=== PATIENT | male | born 1960 | race Hispanic/Latino ===

== ENCOUNTER 2021-06-03 14:47 | Observation (INO) | payer BC ==
--- OUTSIDE RECORDS SUMMARY | 2021-06-03 14:50 | XMS REPORT | Continuity of Care Document ---
:1960 Author Organization [facility] t Address [address] [place] [address] Care Team Providers Name Role Phone Pcp, Does Not Have A Primary Care Physician Doctor Unassigned, Name Attending Clinician Unavailable Therapy, Covid Infusion Attending Clinician Unavailable Jose KC, H Attending Clinician Payers Payer Name Policy Type Policy Number Effective Date Expiration Date S ource Problems This patient has no known problems. Allergies, Adverse Reactions, Alerts Allergy Allergy Status Severity Reaction(s) Onset Inactive Treating Comm ents Source Name Type Date Date Clinician NO KNOWN Drug Active Univers ALLERGIE Class ity of S [facility] Social History Social Habit Start Date Stop Date Quantity Comments Source Sex Assigned At [birth year] [facility] 00:00:00 00:00:00 [facility] Branch Smoking Status Start Date Stop Date Source Unknown if ever smoked [facility] Medications Ordered Filled Start Stop Current Ordering Indication Dosage Frequency Signature Comments Components Source Medication Medication Date Date Medication? Clinician (SIG) Name Name casirivimab 2020- No [id number] 1200mg Univers -imdevimab 11-05 ity of (REGEN-COV 14:15: 13:04 [place] (EUA)) 00 :00 Medical injection Branch 1,200 mg casirivimab 2020- No [id number] 1200mg 1,200 mg, Univers -imdevimab 11-05 Subcutaneo it y of (REGEN-COV 14:15: 13:04 [place] ONCE, [place] 00 :00 1 dose, On Medical injection [place] Kristen 1,200 mg 11/05/20 at 0915, Routine Immunizations Ordered Filled Immunization Date Status Comments Sourc e Immunization Name Name SARS-COV-2 COVID-19 2020-06-10 Completed Unive rsity of PFIZER VACCINE 00:00:00 [facility] SARS-COV-2 COVID-19 2020-06-10 Completed Unive rsity of PFIZER VACCINE 00:00:00 [facility] SARS-COV-2 COVID-19 2020-06-10 Completed Unive rsity of PFIZER VACCINE 00:00:00 [facility] SARS-COV-2 COVID-19 2020-05-20 Completed Unive rsity of PFIZER VACCINE 00:00:00 [facility] SARS-COV-2 COVID-19 2020-05-20 Completed Unive rsity of PFIZER VACCINE 00:00:00 [facility] SARS-COV-2 COVID-19 2020-05-20 Completed Unive rsity of PFIZER VACCINE 00:00:00 [facility] Vital Signs Vital Name Observation Time Observation Value Comments Source Systolic blood 2020-11-05 13:20:00 137 mm[Hg] Univer sity of pressure [facility] Diastolic blood 2020-11-05 13:20:00 80 mm[Hg] Unive rsity of pressure [facility] Heart rate 2020-11-05 13:20:00 65 /min [facility] Body temperature 2020-11-05 13:20:00 36.56 Padmini [facility] in 2020-11-05 13:20:00 96 /min room air [facility] Arterial blood by [facility] Pulse oximetry [place] Body height 2020-11-05 12:55:00 170.2 cm [facility] Body weight 2020-11-05 12:55:00 83.915 kg [facility] BMI 2020-11-05 12:55:00 28.98 kg/m2 [facility] Procedures Procedure Date / Time Performed Performing Clinician Sourc e EXTERNAL PROVIDER 2020-12-01 05:01:00 Doctor Unassigned, No [facility] [place] REC[facility]DS Name [facility] CONSENT/REFUSAL FOR 2020-11-05 05:01:00 [facility] AND Name Medical Branch TREATMENT Encounters Start End Encounter Admission Attending Care Care Encounter Source Date/Time Date/Time Type Type Clinicians Facility Department ID 2020-12-01 2020-12-01 Orders Doctor CAMARA [id number] Univers 00:00:00 00:00:00 Only Unassigned, STEPHANY [id number] [facility] of [facility] [id number] [place] as [id number] [facility] 009 Branch 2020-11-05 2020-11-05 Nurse Therapy, Pcp Covid Infusion [facility] [id number] Univers 07:43:48 08:43:48 Visit Je Garcia PRIMARY [id number] [id number] [id number] [place] dical 042 Branch 2020-11-05 2020-11-05 Outpatient R [facility] [id number] Univers 08:00:00 08:00:00 ity of [facility] 2020-11-05 2020-11-05 Orders Doctor CAMARA [id number] Univers 00:00:00 00:00:00 Only Unassigned, STEPHANY [id number] [facility]y of [facility] [id number] [place] as [phone] [address] Results This patient has no known results.
[2021-06-03] MEDS ORDERED: MORPHINE 2 MG/ML SYR ONE (15:22)
[2021-06-03] MEDS ORDERED: METOPROLOL TAR 25 MG TAB ONE (15:23)
[2021-06-03] MEDS ORDERED: ASPIRIN 81 MG CHEWABLE TABLET ONE (15:35)
[2021-06-03 15:38] LABS: Absolute Lymphocytes (CBC) 1.6 K/uL (0.7-4.9); Hematocrit 43.6 % (39.6-49.0); Lymphocytes % 22.7 % (15.3-44.8); RBC Red Blood Cell Count 4.98 M/uL (4.33-5.43)
[2021-06-03 15:51] LABS: BUN Blood Urea Nitrogen 21 mg/dL (7-18); Bicarbonate 27 mmol/L (21-32); Glucose Level 186 mg/dL (74-106); Potassium 3.8 mmol/L (3.5-5.1); Sodium Level 138 mmol/L (136-145); Troponin High Sensitivity 8.1 pg/mL (<58.9)
--- NOTE | 2021-06-03 15:51 | RAD REPORT ---
EXAM DESCRIPTION: RAD - Chest Single View - 06/03/2021 3:39 pm CLINICAL HISTORY: CHEST PAIN COMPARISON: Two view chest 08/02/2008 TECHNIQUE: AP portable chest image was obtained 06/03/2021 3:39 pm . FINDINGS: Lung volumes are very low accentuating lung parenchymal pattern. No peripheral mass or con solidations seen. Significant infiltrate, failure or volume overload are not suspected. Heart and vasculature are normal. No measurable pleural effusion and no pneumothorax. No acute bony abnormality seen. No acute aortic findings suspected. IMPRESSION: Limited portable study without acute cardiopulmonary finding.
[2021-06-03] MEDS ORDERED: NA CHLORIDE 0.9% 500 ML ONE (16:59)
[2021-06-03] MEDS ORDERED: MORPHINE 4 MG/ML SYR ONE (16:59)
[2021-06-03 17:16] LABS: AST/SGOT 15 U/L (15-37); Albumin 3.8 g/dL (3.4-5.0); Alkaline Phosphatase 101 U/L (45-117); Bilirubin Total 0.4 mg/dL (0.2-1.0); Magnesium 1.8 mg/dL (1.8-2.4); NT PRO-BNP 93 pg/mL (<125)
--- NOTE | 2021-06-03 17:17 | ER ---
Nurse's Notes [facility] Name: Poli Boston Age: 60 yrs Sex: Male : 1960 Arrival Date: 06/03/2021 Time: 14:48 Bed 19 Private MD: Domi Cevallos H Diagnosis: Chest pain, unspecified;Hypertensive heart disease without heart failure Presentation: 06/03 15:05 Chief complaint: Patient states: Chest pain/pressure that started this morning with ww nausea. Coronavirus screen: Vaccine status: Client denies travel out of the [place] in the last 14 days. Ebola Screen: Patient denies travel to an Ebola-affected area in the 21 days before illness onset. Initial Sepsis Screen: Does the patient meet any 2 criteria? No. Patient's initial sepsis screen is negative. Does the patient have a suspected source of infection? No. Patient's initial sepsis screen is negative. Risk Assessment: Do you want to hurt yourself or someone else? Patient reports no desire to harm self or others. Onset of symptoms was June 03, 2021. 15:05 Method Of Arrival: Ambulatory ww 15:05 Acuity: ZEYNEP 3 ww Triage Assessment: 15:06 General: Appears in no apparent distress. Behavior is cooperative. Pain: Complains of ww pain in xiphoid area, mid-sternal area and left breast. Neuro: Level of Consciousness is awake, alert, obeys commands, Oriented to person, place, time, situation, Moves all extremities. Speech is normal. Cardiovascular: Capillary refill Patient's skin is warm and dry. Chest pain is located in chest wall substernal area. Respiratory: Airway is patent Respiratory effort is even, unlabored, Respiratory pattern is regular, symmetrical. GI: Reports. Derm: Skin is intact, is healthy with good turgor. Historical: - Home Meds: 15:06 Metformin Oral [Active]; Glimepiride Oral [Active]; ww - PMHx: 15:06 Diabetes - NIDDM; ww - Immunization history:: Adult Immunizations up to date. - Social history:: Smoking status: Patient denies any tobacco usage or history of. Screenin:08 Abuse screen: Denies threats or abuse. Denies injuries from another. Nutritional ww screening: No deficits noted. Tuberculosis screening: No symptoms or risk factors identified. Fall Risk None identified. Assessment: 15:34 Reassessment: No changes from previously documented assessment. Patient and/or family ll1 updated on plan of care and expected duration. Pain level reassessed. Patient is alert, oriented x 3, equal unlabored respirations, skin warm/dry/pink. Pain: Complains of pain in chest Pain does not radiate. Pain began 1 day ago. 16:30 Reassessment: No changes from previously documented assessment. Patient and/or family ll1 updated on plan of care and expected duration. Pain level reassessed. Patient is alert, oriented x 3, equal unlabored respirations, skin warm/dry/pink. 17:29 Reassessment: No changes from previously documented assessment. Patient and/or family ll1 updated on plan of care and expected duration. Pain level reassessed. Patient is alert, oriented x 3, equal unlabored respirations, skin warm/dry/pink. 18:30 Reassessment: No changes from previously documented assessment. Patient and/or family ll1 updated on plan of care and expected duration. Pain level reassessed. Patient is alert, oriented x 3, equal unlabored respirations, skin warm/dry/pink. 19:19 General: Appears in no apparent distress. Behavior is calm, cooperative. Neuro: Level kd3 of Consciousness is awake, alert, obeys commands, Oriented to person, place, time, situation. Cardiovascular: Patient's skin is warm and dry. Respiratory: Airway is patent Trachea midline Respiratory effort is even, unlabored, Respiratory pattern is regular, symmetrical. 20:33 Reassessment: pt leaving ama. admitting physician aware. kd3 Vital Signs: 15:05 BP 162 / 100; Pulse 87; Resp 18; Temp 98.9; Pulse Ox 97% ; Weight 81.65 kg; Height 5 ww ft. 7 in. (170.18 cm); Pain 8/10; 15:35 BP 181 / 96; Pulse 88; Resp 17; Pulse Ox 97% on R/A; ll1 16:52 BP 195 / 90; Pulse 63; Resp 16; Pulse Ox 97% on R/A; ll1 17:29 BP 166 / 88; Pulse 61; Resp 16; Pulse Ox 97% ; ll1 18:32 BP 168 / 87; Pulse 68; Resp 16; Pulse Ox 96% on R/A; ll1 19:20 BP 159 / 95; Pulse 70; Resp 16; Pulse Ox 95% on R/A; kd3 20:34 BP 163 / 81; Pulse 62; Resp 16; Pulse Ox 95% on R/A; kd3 15:05 Body Mass Index 28.19 (81.65 kg, 170.18 cm) ww ED Course: 14:48 Patient arrived in ED. ds1 14:48 Domi Cevallos DO is Private Physician. ds1 15:03 Alexy Montgomery PA is PHCP. cp 15:03 Crystal Persaud MD is Attending Physician. cp 15:06 Triage completed. ww 15:06 Arm band placed on. ww 15:08 Laurie Holder RN is Primary Nurse. ll1 15:08 Arm band placed on Patient placed in an exam room, on a stretcher. ll1 15:08 EKG done, by ED staff, reviewed by Crystal Persaud MD. ww 15:30 Inserted saline lock: 22 gauge in right antecubital area, using aseptic technique. ll1 Blood collected. 15:35 Patient has correct armband on for positive identification. Bed in low position. Call ll1 light in reach. Side rails up X 1. asbestos abatement worker on. Pulse ox on. NIBP on. 15:35 No provider procedures requiring assistance completed. Patient maintains SpO2 ll1 saturation greater than 95% on room air. 15:41 XRAY Chest (1 view) In Process Unspecified. EDMS 17:15 Crystal Miranda MD is Hospitalizing Provider. cp 19:30 Primary Nurse role handed off by Laurie Holder, JUANA mw2 20:22 Elizabeth Fonseca RN is Primary Nurse. kd3 Administered Medications: 15:16 Drug: Aspirin Chewable Tablet 324 mg Route: PO; ll1 18:35 Follow up: Response: No adverse reaction ll1 15:32 Not Given (Patient Refused): morphine 2 mg IVP once; (PAIN>8) RASS on ADMN: Combtv4, ll1 Very Agttd3, Agttd2, Rstlss1, AlertClm0, Drwsy-1, LtSdtn-2, ModSdtn-3, DpSdtn-4, UnArsble-5 x2 15:32 Drug: Metoprolol 25 mg Route: PO; ll1 18:35 Follow up: Response: No adverse reaction ll1 17:01 Drug: morphine 4 mg {Note: rass 0, pain 4/10.} Route: IVP; Site: right antecubital; ll1 18:34 Follow up: Response: No adverse reaction; Pain is decreased; RASS: Alert and Calm (0) ll1 17:01 Drug: NS 0.9% 500 ml Route: IV; Rate: bolus; Site: right antecubital; ll1 18:34 Follow up: Response: No adverse reaction; IV Status: Completed infusion; IV Intake: ll1 500ml 20:38 Not Given (Patient Refused): hydrALAZINE 10 mg IVP once kd3 20:39 Drug: NS 0.9% 500 ml Route: IV; Rate: 125 ml/hr; Site: right forearm; kd3 Intake: 18:34 IV: 500ml; Total: 500ml. 1 Outcome: 17:16 Decision to Hospitalize by Provider. cp 20:39 AMA AMA form signed kd3 20:39 Condition: stable 20:39 Discharge instructions given to patient, Instructed on the need for admit. 20:54 Patient left the ED. vc1 Signatures: Dispatcher [employer] EDMS Tammy Asencio ds1 Alexy Montgomery PA PA cp Tracy Jerome mw2 Laurie Holder RN RN ll1 Elizabeth Fonseca RN RN kd3 Prachi Braswell RN RN ww Nano Taylor RN RN vc1 Corrections: (The following items were deleted from the chart) 15:35 15:34 Pain: Complains of pain in chest Pain does not radiate. Pain began 2-3 days ago. ll1 ll1
--- NOTE | 2021-06-03 17:17 | EDPHYS ---
Physician Documentation [facility] Name: Poli Boston Age: 60 yrs Sex: Male : 1960 Arrival Date: 06/03/2021 Time: 14:48 Bed 19 Private MD: Domi Cevallos H ED Physician Crystal Persaud HPI: 06/03 15:15 This 60 yrs old Male presents to ER via Ambulatory with complaints of Chest cp Pain. 15:15 The patient or guardian reports chest pain that is located primarily in the anterior cp chest wall, bilaterally. 15:15 Onset: this morning, about 0700. The pain does not radiate. Associated signs and cp symptoms: Pertinent positives: shortness of breath, Pertinent negatives: abdominal pain, diaphoresis, vomiting. The chest pain is described as described as "smashing". Duration: The patient or guardian reports a single episode, that is still ongoing, but improving. Historical: - Home Meds: 15:06 Metformin Oral [Active]; Glimepiride Oral [Active]; ww - PMHx: 15:06 Diabetes - NIDDM; ww - Immunization history:: Adult Immunizations up to date. - Social history:: Smoking status: Patient denies any tobacco usage or history of. ROS: 15:20 Cardiovascular: Positive for chest pain, Negative for edema, palpitations. cp 15:20 Constitutional: Negative for body aches, chills, fever, poor PO intake. cp 15:20 Respiratory: Negative for cough, shortness of breath, wheezing. cp 15:20 Abdomen/GI: Negative for abdominal pain, nausea, vomiting, and diarrhea. 15:20 Eyes: Negative for injury, pain, redness, and discharge. cp Exam: 15:05 ECG was reviewed by the Attending Physician. cp 15:25 Constitutional: The patient appears in no acute distress, alert, awake, cp non-diaphoretic, non-toxic, well developed, well nourished, uncomfortable. Vital Signs: 15:05 BP 162 / 100; Pulse 87; Resp 18; Temp 98.9; Pulse Ox 97% ; Weight 81.65 kg; Height 5 ww ft. 7 in. (170.18 cm); Pain 8/10; 15:35 BP 181 / 96; Pulse 88; Resp 17; Pulse Ox 97% on R/A; ll1 16:52 BP 195 / 90; Pulse 63; Resp 16; Pulse Ox 97% on R/A; ll1 17:29 BP 166 / 88; Pulse 61; Resp 16; Pulse Ox 97% ; ll1 18:32 BP 168 / 87; Pulse 68; Resp 16; Pulse Ox 96% on R/A; ll1 19:20 BP 159 / 95; Pulse 70; Resp 16; Pulse Ox 95% on R/A; kd3 20:34 BP 163 / 81; Pulse 62; Resp 16; Pulse Ox 95% on R/A; kd3 15:05 Body Mass Index 28.19 (81.65 kg, 170.18 cm) ww MDM: 15:12 Patient medically screened. cp 16:37 HEART Score: History: ECG: Non specific repolarization disturbance / LBTB / PM (1), cp Age: > 45 and < 65 years (1), Risk Factors: > or = 3 Risk factors for atherosclerotic disease (2), [Hypertension] [DM] [+ Family HX]. The patient was given aspirin in the Emergency Department. 16:52 Data reviewed: vital signs, nurses notes, lab test result(s), EKG, radiologic studies, cp plain films. Counseling: I had a detailed discussion with the patient and/or guardian regarding: the historical points, exam findings, and any diagnostic results supporting the discharge/admit diagnosis, the presence of at least one elevated blood pressure reading (>120/80) during this emergency department visit, lab results, radiology results, the need for further work-up and treatment in the hospital. Physician consultation: Crystal Miranda MD was called at 16:52. 06/03 15:11 Order name: Basic Metabolic Panel; Complete Time: 16:37 ll1 06/03 16:37 Interpretation: Normal except: GLUC 186; BUN 21. cp 06/03 15:11 Order name: CBC with Diff; Complete Time: 16:37 ll1 06/03 15:11 Order name: Troponin HS; Complete Time: 16:37 ll1 06/03 15:14 Order name: PT-INR cp 06/03 15:14 Order name: Ptt, Activated cp 06/03 15:14 Order name: BNP cp 06/03 15:14 Order name: LFT's cp 06/03 15:14 Order name: Magnesium cp 06/03 17:34 Order name: COVID-19 SARS RT PCR (Document "Date of Onset" if Symptomatic) ss 06/03 17:41 Order name: Basic Metabolic Panel [facility] 06/03 17:41 Order name: Basic Metabolic Panel [facility] 06/03 17:41 Order name: CBC with Automated Diff [facility] 06/03 17:41 Order name: CBC with Automated Diff [facility] 06/03 17:41 Order name: Lipid Profile [facility] 06/03 15:11 Order name: XRAY Chest (1 view); Complete Time: 16:37 [facility] 06/03 15:11 Order name: EKG; Complete Time: 15:12 [facility] 06/03 15:11 Order name: Cardiac monitoring; Complete Time: 15:11 [facility] 06/03 15:11 Order name: EKG - Nurse/Tech; Complete Time: 15:11 [facility] 06/03 15:11 Order name: IV Saline Lock; Complete Time: 15:11 [facility] 06/03 17:41 Order name: CONS Physician Consult [facility] 06/03 17:41 Order name: Heart Healthy [facility] 06/03 17:41 Order name: Echo with Doppler [facility] 06/03 17:41 Order name: Lipid Profile [facility] 06/03 15:11 Order name: Labs collected and sent; Complete Time: 15:11 [facility] 06/03 15:11 Order name: O2 Per Protocol; Complete Time: 15:11 [facility] 06/03 15:11 Order name: O2 Sat Monitoring; Complete Time: 15:11 ll1 EC:05 Rate is 83 beats/min. Rhythm is regular. DE interval is normal. QRS interval is normal. cp QT interval is normal. T waves are Inverted in lead III. Interpreted by me. Reviewed by me. Administered Medications: 15:16 Drug: Aspirin Chewable Tablet 324 mg Route: PO; ll1 18:35 Follow up: Response: No adverse reaction ll1 15:32 Not Given (Patient Refused): morphine 2 mg IVP once; (PAIN>8) RASS on ADMN: Combtv4, ll1 Very Agttd3, Agttd2, Rstlss1, AlertClm0, Drwsy-1, LtSdtn-2, ModSdtn-3, DpSdtn-4, UnArsble-5 x2 15:32 Drug: Metoprolol 25 mg Route: PO; ll1 18:35 Follow up: Response: No adverse reaction ll1 17:01 Drug: morphine 4 mg {Note: rass 0, pain 4/10.} Route: IVP; Site: right antecubital; ll1 18:34 Follow up: Response: No adverse reaction; Pain is decreased; RASS: Alert and Calm (0) ll1 17:01 Drug: NS 0.9% 500 ml Route: IV; Rate: bolus; Site: right antecubital; ll1 18:34 Follow up: Response: No adverse reaction; IV Status: Completed infusion; IV Intake: ll1 500ml 20:38 Not Given (Patient Refused): hydrALAZINE 10 mg IVP once kd3 20:39 Drug: NS 0.9% 500 ml Route: IV; Rate: 125 ml/hr; Site: right forearm; kd3 Disposition Summary: 06/03/21 17:16 Hospitalization Ordered Hospitalization Status: Observation cp Provider: Crystal Miranda cp Location: Telemetry/MedSurg (observation) cp Condition: Stable cp Problem: new cp Symptoms: have improved cp Bed/Room Type: Standard cp Room Assignment: 216(06/03/21 19:24) vc1 Diagnosis - Chest pain, unspecified cp - Hypertensive heart disease without heart failure cp Forms: - Medication Reconciliation Form cp - SBAR form cp Signatures: Dispatcher [employer] EDAlexy Roberson PA PA cp Laurie Holder RN RN ll1 Elizabeth Fonseca RN RN kd3 Prachi Braswell RN RN ww Nano Taylor RN RN vc1 Corrections: (The following items were deleted from the chart) 17:16 cp vc1
[2021-06-03 17:19] LABS: ALT/SGPT < 10 U/L (12-78); Bilirubin Direct < 0.1 mg/dL (0-0.2)
[2021-06-03] MEDS ORDERED: ACETAMINOPHEN 500 MG TAB PO PRN (17:37)
--- NOTE | 2021-06-03 20:54 | P.SSS ---
Patient History Date of Service: 06/03/21 Reason for admission: Chest Pain History of Present Illness: Patient is a 60-year-old male with past medical history of ljg-vzkwumg-vgwqimlsl type II diabetes who presented to the ED with complaints of chest pain. He states the onset was about 7:00 this morning and the pain does not radiate. Associated with shortness of breath but denies abdominal pain, diaphoresis, vomiting. The chest pain is described as smashing and describes it as a single episode that is ongoing but has improved EKG showed inverted T waves in lead III. Troponin WNL. he was given 324 mg of chewable aspirin, 25 mg metoprolol. ED provider wishes to admit for observation. Allergies No Known Allergies Allergy (Unverified 05/26/16 15:52) Home medications list reviewed: Yes - Past Medical/Surgical History Diabetic: Yes Past Surgical History: Patient denies surgical history - Family History Father -: Heart disease - Social History Alcohol use: No CD- Drugs: Yes Caffeine use: No Place of Residence: Home Review of Systems Respiratory: Shortness of Breath Cardiovascular: Chest Pain Physical Examination - Physical Exam General: Alert, In no apparent distress, Oriented x3 HEENT: Atraumatic, PERRLA, Mucous membr. moist/pink, EOMI, Sclerae nonicteric Neck: Supple, 2+ carotid pulse no bruit, No LAD, Without JVD or thyroid abnormality Respiratory: Clear to auscultation bilaterally, Normal air movement Cardiovascular: No edema, Regular rate/rhythm, Normal S1 S2 Gastrointestinal: Normal bowel sounds, No tenderness Musculoskeletal: No tenderness Integumentary: No rashes Neurological: Normal speech, Normal strength at 5/5 x4 extr, Normal tone, Normal affect - Studies Laboratory Data (last 24 hrs) 06/03/21 15:26: Magnesium 1.8, Total Bilirubin 0.4, AST 15, ALT < 10 L, Alkaline Phosphatase 101 06/03/21 15:18: WBC 7.1, Hgb 15.4, Hct 43.6, Plt Count 184 06/03/21 15:18: Sodium 138, Potassium 3.8, BUN 21 H, Creatinine 0.66, Glucose 186 H 06/03/21 15:14: PT Cancelled, INR Cancelled, APTT Cancelled - Diagnosis (Problem(s)) (1) Chest pain Status: Acute Qualifiers: Chest pain type: unspecified Qualified Code(s): R07.9 - Chest pain, unspecified (2) Type 2 diabetes mellitus Status: Acute Qualifiers: Diabetes mellitus alf insulin use: without alf use Diabetes mellitus complication status: without complication Qualified Code(s): E11.9 - Type 2 diabetes mellitus without complications Treatment Summary: Patient received 324 mg of chewable aspirin and 25 mg metoprolol in the ED. his chest pain improved. I later received a call that patient was wanting to leave AMA. I spoke with patient and he states he is too anxious to stay in the hospital. Attempts were made to convince patient to stay, however his mind was made up. Told patient to please follow-up with cardiology outpatient and return to the ED with any new or worsening symptoms. - Disposition Disposition: AMA-LEFT AGAINST MEDICAL ADVIC Condition: FAIR Patient Discharge Instructions: Please follow-up with wildland fire fighter. Diet: AHA Activity: Ad leda Physician Review: Patient Assessed, Agree with Above Assessment and Plan Critical Care: No Time Spent Managing Pts Care (In Minutes): 50
[2021-06-03 21:00] VITALS: TEMP 98.9
[2021-06-03] MEDS ORDERED: METOPROLOL TAR 50 MG TAB PO SCH (21:00)
[2021-06-03 21:07] VITALS: O2SAT 95
[2021-06-03 21:08] VITALS: BP 163/81
[2021-06-04] MEDS ORDERED: ENOXAPARIN 40 MG/0.4 ML SQ SCH (09:00)
[2021-06-04] MEDS ORDERED: ASPIRIN EC 81 MG TAB PO SCH (09:00)
== END 2021-06-03 20:30 | disposition left against medical advice (07) ==
LOC: ER 14:47 → ERHOLD 17:37
PROVIDERS: ADMIT Hospitalist; ATTEND Hospitalist
DX: R07.9 Chest pain, unspecified (principal); E11.9 Type 2 diabetes mellitus without complications; Z53.29 Procedure and treatment not carried out because of patient's decision for other reasons; R06.02 Shortness of breath; Z20.822 Contact with and (suspected) exposure to COVID-19; Z82.49 Family history of ischemic heart disease and other diseases of the circulatory system
CPT/HCPCS: 96361; 93005; 85025; 80048; 36415; 83735; 80076; 84484; 83880; 71045; 96374; 99285; U0003; J2270; J7040; G0378 ×2

== ENCOUNTER → 2023-02-03 | Emergency (ER) | payer BC ==
[~2023-02-03] MED LIST: CYCLOBENZAPRINE 10 MG TAB ONE; KETOROLAC 30 MG/ML INJ ONE; MORPHINE 4 MG/ML SYR ONE; PROMETHAZINE 25 MG TABLET ONE
--- OUTSIDE RECORDS SUMMARY | 2023-02-03 00:28 | XMS REPORT | Continuity of Care Document ---
Author Name Unknown Address [address] [place] [address] [facility] thconnect Address [address] [place] [address] Care Team Providers Care Corporate Safety Manager Name Role Phone Pcp, Patient Does Not Have A Primary Care Physic melonie Doctor Unassigned, [place] Attending Clinician U navailable Therapy, Pcp Covid Infusion Attending Clinician Unavailable Je Garcia MD Attending Clinician Svitlana Bailey Unavailable Payers Payer Name Policy Type Policy Number Effective Date Expirati on Date Source Problems Condition Name Condition Details Condition Category Status Onset Date Resolution Date Last Treatment Date Treating Clinician Comments Source PRESBYOPIA Condition Active 08-15 00:00: 00 2021-08-15 07:58:03 Svitlana Bailey [facility] HYPEROPIA Condition Active 08-15 00:00: 00 2021-08-15 07:58:03 Svitlana Bailey [facility] Allergies, Adverse Reactions, Alerts Allergy Name Allergy Type Status Severity Reaction(s) Onset Date Inactive Date Treating Clinician Comments Source NO KNOWN ALLERGIE S Drug Class Active [facility] Social History Social Habit Start Date Stop Date Quantity Comments Source Sex Assigned At 1960 00:00:00 1960 00:00:00 [facility] Smoking Status Start Date Stop Date Source Unknown if ever smoked [facility] Medications Ordered Medication Name Filled Medication Name Start Date Stop Date Current Medication? Ordering Clinician Indication Dosage Frequency Signature (SIG) Comments Components Source casirivimab -imdevimab (REGEN-COV (EUA)) injection 1,200 mg 11-05 14:15: 00 11-05 13:04 :00 No [id number] [facility] casirivimab -imdevimab (REGEN-COV (EUA)) injection 1,200 mg 11-05 14:15: 00 11-05 13:04 :00 No [id number] 1200mg 1,200 mg, Subcutaneo us, ONCE, 1 dose, On 11/05/20 at 0915, Routine [facility] Vital Signs Vital Name Observation Time Observation Value Comments S ource Systolic blood pressure 2020-11-05 13:20:00 137 mm[Hg] [facility] Diastolic blood pressure 2020-11-05 13:20:00 80 mm[Hg] [facility] Heart rate 2020-11-05 13:20:00 65 /min [facility] Body temperature 2020-11-05 13:20:00 36.56 Padmini [facility] Oxygen saturation in Arterial blood by Pulse oximetry 2020-11-05 13:20:00 96 /min room air [facility] Body height 2020-11-05 12:55:00 170.2 cm [facility] Body weight 2020-11-05 12:55:00 83.915 kg [facility] BMI 2020-11-05 12:55:00 28.98 kg/m2 [facility] Procedures Procedure Date / Time Performed Performing Clinician Source Tint, photochromatic, per lens 2021-08-15 07:53:24 [facility], per lens 2021-08-15 07:53:24 Svitlana Bailey [facility] Antireflective coating, per lens 2021-08-15 07:52:18 Svitlana Bailey [facility] EXTERNAL PROVIDER RECORDS 2020-12-01 05:01:00 Do ctor Unassigned, [place] [facility] CONSENT/REFUSAL FOR DIAGNOSIS AND TREATMENT 2020-11-05 05:01:00 Doctor Unassigned, [place] [facility] Encounters Start Date/Time End Date/Time Encounter Type Admission Type Attending Clinicians Care Facility Care Department Encounter ID Source 2020-12-01 00:00:00 2020-12-01 00:00:00 Orders Only Doctor Unassigned, Black [place] [facility] [id number] [facility] 2020-11-05 07:43:48 2020-11-05 08:43:48 Nurse Visit Therapy, Pcp Je Ventura [facility] [id number] [facility] 2020-11-05 08:00:00 2020-11-05 08:00:00 Outpatient R [facility] [id number] [facility] 2020-11-05 00:00:00 2020-11-05 00:00:00 Orders Only Doctor Unassigned, [place] [facility] [id number] [facility]
--- NOTE | 2023-02-03 02:01 | ER ---
Nurse's Notes [facility] Name: Poli Boston Age: 62 yrs Sex: Male : 1960 Arrival Date: 02/03/2023 Time: 00:26 Bed 4 Private MD: Diagnosis: Lumbago with sciatica, left side Presentation: 02/03 00:57 Chief complaint: Patient states: left sided sciatic nerve pain. Coronavirus screen: At as6 this time, the client does not indicate any symptoms associated with coronavirus-19. Ebola Screen: No symptoms or risks identified at this time. Initial Sepsis Screen: Does the patient meet any 2 criteria? No. Patient's initial sepsis screen is negative. Does the patient have a suspected source of infection? No. Patient's initial sepsis screen is negative. Risk Assessment: Do you want to hurt yourself or someone else? Patient reports no desire to harm self or others. Onset of symptoms was January 20, 2023. 00:57 Acuity: ZEYNEP 4 as6 00:57 Method Of Arrival: Ambulatory as6 Historical: - Allergies: 00:56 No Known Allergies; as6 - Home Meds: 00:56 None [Active]; as6 - PMHx: 00:56 Diabetes - NIDDM; as6 - PSHx: 00:56 Appendectomy; Cholecystectomy; as6 - Immunization history:: Adult Immunizations not up to date. - Social history:: Smoking status: Patient denies any tobacco usage or history of. - Family history:: not pertinent. Screenin:11 [place] [facility] Fall Risk Assessment (Adult) History of falling in the last 3 months, jj7 including since admission No falls in past 3 months (0 pts) Confusion or Disorientation No (0 pts) Intoxicated or Sedated No (0 pts) Impaired Gait No (0 pts) Mobility Assist Device Used No (0 pt) Altered Elimination No (0 pt) Score/Fall Risk Level 0 - 2 = Low Risk Oriented to surroundings, Maintained a safe environment, Educated pt \T\ family on fall prevention, incl call for assistance when getting out of bed. Abuse screen: Denies threats or abuse. Nutritional screening: No deficits noted. Tuberculosis screening: No symptoms or risk factors identified. Assessment: 01:11 General: Appears in no apparent distress. uncomfortable, Behavior is calm, cooperative, jj7 appropriate for age. Pain: Complains of pain in left leg. Vital Signs: 00:57 BP 155 / 87; Pulse 100; Resp 18 S; Temp 98.8(TE); Pulse Ox 99% on R/A; Weight 74.84 kg as6 (R); Height 5 ft. 7 in. (R); Pain 10/10; 01:55 BP 148 / 77; Pulse 64; Resp 17; Pulse Ox 100% ; Pain 0/10; jj7 02:30 BP 138 / 74; Pulse 98; Resp 17; Pulse Ox 97% ; Pain 0/10; jj7 00:57 Body Mass Index 25.84 (74.84 kg, 170.18 cm) as6 00:57 Pain Scale: Adult as6 01:55 Pain Scale: Adult jj7 02:30 Pain Scale: Adult jj7 ED Course: 00:29 Patient arrived in ED. jj6 00:30 Oli Roca MD is Attending Physician. sp4 00:57 Arm band placed on. as6 00:59 Triage completed. as6 01:12 Patient has correct armband on for positive identification. Bed in low position. Call jj7 light in reach. 02:30 No provider procedures requiring assistance completed. Patient did not have IV access jj7 during this emergency room visit. Administered Medications: 01:10 Drug: Ketorolac IM 60 mg IM once Route: IM; Site: left gluteus; jj7 01:54 Follow up: Response: Marked relief of symptoms; Pain is decreased jj7 01:11 Drug: morphine IM 8 mg IM once Route: IM; Site: left gluteus; jj7 01:55 Follow up: Response: Marked relief of symptoms; Pain is decreased jj7 01:11 Drug: Cyclobenzaprine PO 10 mg PO once Route: PO; jj7 01:55 Follow up: Response: Marked relief of symptoms jj7 01:11 Drug: Promethazine PO 25 mg PO once Route: PO; jj7 01:55 Follow up: Response: Marked relief of symptoms jj7 Medication: 01:11 VIS not applicable for this client. jj7 Outcome: 02:01 Discharge ordered by . sp4 02:30 Discharged to home ambulatory, with significant other, jj7 02:30 Condition: improved 02:30 Discharge instructions given to patient, Instructed on discharge instructions, medication usage, Demonstrated understanding of instructions, medications, Prescriptions given X 3, 02:32 Patient left the ED. jj7 Signatures: Richelle Tam jj6 Mark Crane RN RN as6 Donald Frank RN RN jj7 Oli Roca MD MD sp4
--- NOTE | 2023-02-03 02:02 | EDPHYS ---
Physician Documentation [facility] Name: Poli Boston Age: 62 yrs Sex: Male : 1960 Arrival Date: 02/03/2023 Time: 00:26 Bed 4 Private MD: ED Physician Oli Roca HPI: 02/03 00:32 This 62 yrs old Male presents to ER via Unassigned with complaints of Sciatica sp4 pain. 00:34 PMH - Home Meds: Metformin Oral; Glimepiride Oral; PMHx: Diabetes - NIDDM; . sp4 01:57 Patient presents with 2 weeks of left-sided back pain radiating into the left buttock sp4 down the left leg as well.. Described as moderate to severe patient has difficulty finding comfortable spot.. Historical: - Allergies: 00:56 No Known Allergies; as6 - Home Meds: 00:56 None [Active]; as6 - PMHx: 00:56 Diabetes - NIDDM; as6 - PSHx: 00:56 Appendectomy; Cholecystectomy; as6 - Immunization history:: Adult Immunizations not up to date. - Social history:: Smoking status: Patient denies any tobacco usage or history of. - Family history:: not pertinent. ROS: 01:57 Constitutional: Negative for fever, chills, and weight loss, Back: Stated back pain sp4 with radiation into the left leg 01:57 All other systems are negative, Exam: 01:57 Constitutional: This is a well developed, well nourished patient who is awake, alert, sp4 comfortable appearing male, nontoxic Head/Face: Normocephalic, atraumatic. Eyes: Pupils equal round and reactive to light, extra-ocular motions intact. Lids and lashes normal. Conjunctiva and sclera are not injected. Cornea within normal limits. Periorbital areas with no swelling, redness, or edema. ENT: Nares patent. No nasal discharge, no septal abnormalities noted. Tympanic membranes are normal and external auditory canals are clear. Oropharynx with no redness, swelling, or masses, exudates, or evidence of obstruction, uvula midline. Mucous membranes moist. Neck: Trachea midline, no thyromegaly or masses palpated, and no cervical lymphadenopathy. Supple, full range of motion without nuchal rigidity, or vertebral point tenderness. Chest/axilla: Normal chest wall appearance and motion. Nontender with no deformity. No lesions are appreciated. Cardiovascular: Regular rate and rhythm with a normal S1 and S2. No gallops, murmurs, or rubs. Normal PMI, no JVD. No pulse deficits. Respiratory: Lungs have equal breath sounds bilaterally, clear to auscultation and percussion. No rales, rhonchi or wheezes noted. No increased work of breathing, no retractions or nasal flaring. Abdomen/GI: Soft, non-tender, with normal bowel sounds. No distension or tympany. No guarding or rebound. No evidence of tenderness throughout. Back: No spinal tenderness. No costovertebral tenderness. Skin: Warm, dry with normal turgor. Normal color with no rashes, no lesions, and no evidence of cellulitis. MS/ Extremity: Pulses equal, no cyanosis. Neurovascular intact. Full, normal range of motion. Neuro: Awake and alert, GCS 15, oriented to person, place, time, and situation. Cranial nerves II-XII grossly intact. Motor strength 5/5 in all extremities. Sensory grossly intact. Psych: Awake, alert, with orientation to person, place and time. Behavior, mood, and affect are within normal limits Vital Signs: 00:57 BP 155 / 87; Pulse 100; Resp 18 S; Temp 98.8(TE); Pulse Ox 99% on R/A; Weight 74.84 kg as6 (R); Height 5 ft. 7 in. (R); Pain 10/10; 01:55 BP 148 / 77; Pulse 64; Resp 17; Pulse Ox 100% ; Pain 0/10; jj7 02:30 BP 138 / 74; Pulse 98; Resp 17; Pulse Ox 97% ; Pain 0/10; jj7 00:57 Body Mass Index 25.84 (74.84 kg, 170.18 cm) as6 00:57 Pain Scale: Adult as6 01:55 Pain Scale: Adult jj7 02:30 Pain Scale: Adult jj7 MDM: 00:33 Patient medically screened. sp4 01:57 Differential Diagnosis altered mental status, sepsis, flu, Pain with sciatica . Data sp4 reviewed: vital signs, nurses notes, old medical records. ED course: Can felt marked improvement after pain medications. Patient has no signs of neurologic compromise and has normal gait. Exam points to left-sided back pain with left sciatica. Prescribed high-dose ibuprofen, Tylenol with codeine, on also Flexeril. Will advise bedrest for the next 30 days. Work note will be provided. . Administered Medications: 01:10 Drug: Ketorolac IM 60 mg IM once Route: IM; Site: left gluteus; jj7 01:54 Follow up: Response: Marked relief of symptoms; Pain is decreased jj7 01:11 Drug: morphine IM 8 mg IM once Route: IM; Site: left gluteus; jj7 01:55 Follow up: Response: Marked relief of symptoms; Pain is decreased jj7 01:11 Drug: Cyclobenzaprine PO 10 mg PO once Route: PO; j7 01:55 Follow up: Response: Marked relief of symptoms jj7 01:11 Drug: Promethazine PO 25 mg PO once Route: PO; j7 01:55 Follow up: Response: Marked relief of symptoms jj7 Disposition Summary: 02/03/23 02:01 Discharge Ordered Problem: new sp4 Symptoms: have improved sp4 Condition: Stable sp4 Diagnosis - Lumbago with sciatica, left side sp4 Followup: sp4 - With: Private Physician - When: 7 - 10 days - Reason: Recheck today's complaints Discharge Instructions: - Discharge Summary Sheet sp4 - Sciatica, [id number]-Ekda sp4 Forms: - Patient Portal Instructions sp4 Prescriptions: - acetaminophen-codeine 300-60 mg Oral tablet - take 1 tablet ORAL route every 6 hours; 20 tablet; Refills: 0, Product sp4 Selection Permitted - Ibuprofen 800 mg Oral Tablet - take 1 tablet ORAL route every 8 hours As needed take with food; 30 tablet; sp4 Refills: 0, Product Selection Permitted - Cyclobenzaprine 10 mg Oral Tablet - take 1 tablet ORAL route every 8 hours As needed; 30 tablet; Refills: 0, sp4 Product Selection Permitted Signatures: Mark Crane RN RN as6 Donald Frank RN RN jj7 Oli Roca MD MD sp4
[2023-02-03 04:12] VITALS: TEMP 98.8
[2023-02-03 04:18] VITALS: BP 138/74; O2SAT 97
== END ==
LOC: ER 00:26
DX: M54.42 Lumbago with sciatica, left side (principal)
CPT/HCPCS: 96372; 99284; Q0169